=== PATIENT | female | born 1990 | race Caucasian/White ===

== ENCOUNTER 2019-06-05 18:35 | Emergency (ER) | payer OTHER ==
[2019-06-05 19:05] VITALS: BP 133/94; PULSE 86
--- NOTE | 2019-06-05 20:00 | EDM.PDOC ---
ED HPI GENERAL MEDICAL PROBLEM - General Chief Complaint: [employer] WORK[employer] Problem Stated Complaint: CRAMPS AND SPOTTING Time Seen by Provider: 06/05/19 19:39 Source of Information: Reports: Patient History Limitations: Reports: No Limitations - History of Present Illness INITIAL COMMENTS - FREE TEXT/NARRATIVE: Ms. Delarosa is a very pleasant 28-year-old woman with no significant past medical history, , who states that she and her are trying to get . She states that she has been on clomiphene in the past, but not for the last 2 menstrual cycles. Her LMP was 05/19/2019, lasting 4 days, however, she states that she has been spotting since, a brownish color, except for tonight, when it was pinkish. She reports one week of intermittent left lower quadrant cramping. She has had nausea, but no recent fever, vomiting, constipation, diarrhea, or urinary symptoms. She states that her breasts hurt. She denies feeling lightheaded when standing. No prior similar symptoms. The patient states that she has a history of kidney stones, and was wondering if her current symptoms could be due to a kidney stone, since she has had a little bit of left back pain, but states that it also has been coming and going. She acknowledges that her current symptoms are nothing like they were when she had a kidney stone. The patient's PCP is MOISES Blackburn Her [employer] is Dr. Rhea Drake. The patient has an appointment to see Dr. Drake on 06/09/2019. Lower Pelvic Pain Score (Numeric/FACES): 0 - Related Data Allergies Allergy/AdvReac Type Severity Reaction Status Date / Time No Known Allergies Allergy Verified 09/05/18 18:36 Home Meds: Home Meds Sertraline HCl [Zoloft] 100 mg PO DAILY 09/05/18 [History] Past Medical History Genitourinary History: Reports: Renal Calculus : 2 Para: 2 Psychiatric History: Reports: Anxiety, Depression - Past Surgical History HEENT Surgical History: Reports: Oral Surgery ([place]is[place] teeth extraction) Cardiovascular Surgical History: Reports: Other (See Below) (Left neck AVM embolization) Social & Family History - Tobacco Use Smoking Status *Q: Never Smoker - Alcohol Use Alcohol Use History: No - Recreational Drug Use Recreational Drug Use: No - Living Situation & Occupation Living situation: Reports: , with Spouse, with Family (2 kids) Occupation: Unemployed ED ROS GENERAL - Review of Systems Review Of Systems: ROS reveals no pertinent complaints other than HPI. ED EXAM, RENAL/ - Physical Exam Exam: See Below Exam Limited By: No Limitations General Appearance: Alert, WD/WN, No Apparent Distress Eye Exam: Bilateral Eye: EOMI, Normal Inspection Ears: Normal External Exam, Hearing Grossly Normal Nose: Normal Inspection Throat/Mouth: Normal Inspection, Normal Lips, Normal Voice, No Airway Compromise Head: Atraumatic, Normocephalic Neck: Normal Inspection, Full Range of Motion Respiratory/Chest: No Respiratory Distress, Lungs Clear, Normal Breath Sounds, No Accessory Muscle Use Cardiovascular: Normal Peripheral Pulses, Regular Rate, Rhythm, No Edema, No Gallop, No JVD, No Murmur, No Rub GI/Abdominal: Normal Bowel Sounds, Soft, No Organomegaly, No Distention, No Abnormal Bruit, No Mass, Tender (Left lower quadrant/pelvis only. Nontender elsewhere.) (Female) Exam: Deferred Rectal (Female) Exam: Deferred Back Exam: Normal Inspection, Full Range of Motion. No: CVA Tenderness (L), CVA Tenderness (R) Extremities: Normal Inspection, Normal Range of Motion, No Pedal Edema, Normal Capillary Refill Neurological: Alert, Oriented, Normal Cognition, No Motor/Sensory Deficits Psychiatric: Normal Affect Skin Exam: Warm, Dry, Intact, Normal Color, No Rash Course - Vital Signs Last Recorded V/S: Last Vital Signs Temp 37.9 C 06/05/19 19:03 Pulse 86 06/05/19 19:03 Resp 16 06/05/19 19:03 BP 133/94 H 06/05/19 19:03 Pulse Ox 100 06/05/19 19:03 - Orders/Labs/Meds Orders: Active Orders 24 hr Category Date Time Status OB Transvaginal [US] Stat Exams 06/05/19 20:42 Taken PATIENT RETYPE [BBK] Routine Lab 06/05/19 21:40 Ordered Labs: Laboratory Tests 06/05/19 06/05/19 06/05/19 Range/Units 19:25 21:00 21:00 WBC 8.73 (3.98-10.04) K/mm3 RBC 4.20 (3.98-5.22) M/mm3 Hgb 11.8 (11.2-15.7) gm/dl Hct 35.9 (34.1-44.9) % MCV 85.5 (79.4-94.8) fl MCH 28.1 (25.6-32.2) pg MCHC 32.9 (32.2-35.5) g/dl RDW Std Deviation 40.3 (36.4-46.3) fL Plt Count 214 (182-369) K/mm3 MPV 10.3 (9.4-12.3) fl Neut % (Auto) 59.0 (34.0-71.1) % Lymph % (Auto) 32.2 (19.3-51.7) % Nicholas % (Auto) 6.2 (4.7-12.5) % Eos % (Auto) 2.4 (0.7-5.8) Baso % (Auto) 0.1 (0.1-1.2) % Neut # (Auto) 5.15 (1.56-6.13) K/mm3 Lymph # (Auto) 2.81 (1.18-3.74) K/mm3 Nicholas # (Auto) 0.54 H (0.24-0.36) K/mm3 Eos # (Auto) 0.21 (0.04-0.36) K/mm3 Baso # (Auto) 0.01 (0.01-0.08) K/mm3 Sodium 141 (136-145) mEq/L Potassium 3.7 (3.5-5.1) mEq/L Chloride 107 (98-107) mEq/L Carbon Dioxide 25 (21-32) mEq/L Anion Gap 12.7 (5-15) BUN 12 (7-18) mg/dL Creatinine 0.8 (0.55-1.02) mg/dL Est Cr Clr Drug Dosing 98.88 mL/min Estimated GFR (MDRD) > 60 (>60) mL/min BUN/Creatinine Ratio 15.0 (14-18) Glucose 88 (74-106) mg/dL Calcium 9.3 (8.5-10.1) mg/dL Total Bilirubin 0.2 (0.2-1.0) mg/dL AST 12 L (15-37) U/L ALT 14 (14-59) U/L Alkaline Phosphatase 59 (46-116) U/L Total Protein 7.0 (6.4-8.2) g/dl Albumin 4.0 (3.4-5.0) g/dl Globulin 3.0 gm/dL Albumin/Globulin Ratio 1.3 (1-2) HCG, Quant 437.0 mIU/mL Urine HCG, Qual Positive (NEGATIVE) Blood Type 06/05/19 Range/Units 21:00 WBC (3.98-10.04) K/mm3 RBC (3.98-5.22) M/mm3 Hgb (11.2-15.7) gm/dl Hct (34.1-44.9) % MCV (79.4-94.8) fl MCH (25.6-32.2) pg MCHC (32.2-35.5) g/dl RDW Std Deviation (36.4-46.3) fL Plt Count (182-369) K/mm3 MPV (9.4-12.3) fl Neut % (Auto) (34.0-71.1) % Lymph % (Auto) (19.3-51.7) % Nicholas % (Auto) (4.7-12.5) % Eos % (Auto) (0.7-5.8) Baso % (Auto) (0.1-1.2) % Neut # (Auto) (1.56-6.13) K/mm3 Lymph # (Auto) (1.18-3.74) K/mm3 Nicholas # (Auto) (0.24-0.36) K/mm3 Eos # (Auto) (0.04-0.36) K/mm3 Baso # (Auto) (0.01-0.08) K/mm3 Sodium (136-145) mEq/L Potassium (3.5-5.1) mEq/L Chloride (98-107) mEq/L Carbon Dioxide (21-32) mEq/L Anion Gap (5-15) BUN (7-18) mg/dL Creatinine (0.55-1.02) mg/dL Est Cr Clr Drug Dosing mL/min Estimated GFR (MDRD) (>60) mL/min BUN/Creatinine Ratio (14-18) Glucose (74-106) mg/dL Calcium (8.5-10.1) mg/dL Total Bilirubin (0.2-1.0) mg/dL AST (15-37) U/L ALT (14-59) U/L Alkaline Phosphatase (46-116) U/L Total Protein (6.4-8.2) g/dl Albumin (3.4-5.0) g/dl Globulin gm/dL Albumin/Globulin Ratio (1-2) HCG, Quant mIU/mL Urine HCG, Qual (NEGATIVE) Blood Type O POSITIVE - Re-Assessments/Exams Free Text/Narrative Re-Assessment/Exam: 06/05/19 19:56 As per the HPI, the patient had a 4 day menstrual period starting 05/19/2019, but has been spotting ever since, and has had left pelvic cramping on and off for the past week. The patient denies having any urinary symptoms, and since she is spotting, collecting a urine sample to check for a UTI would require a quick catheter, which the patient does not want. Similarly, likely out of modesty, the patient does not want a pelvic exam, preferring to wait until her previously scheduled appointment with Dr. Drake this coming Friday. I have ordered a urine test. If it is positive, we will need to get a pelvic ultrasound to rule out an ectopic , but if it is negative, no further testing is necessary tonight, as a left ovarian cyst would be the most likely diagnosis. A kidney stone is highly unlikely, as she has no CVA tenderness whatsoever. If her test is negative, the patient can follow-up with Dr. Drake on Friday. 06/05/19 20:46 The patient's urine test has returned positive. I have therefore ordered a transvaginal ultrasound to evaluate for an ectopic , along with a CBC, CMP quantitative hCG, and an ABO/Rh. 06/05/19 22:47 Transvaginal ultrasound is read by [facility] as: Moderate amount of free fluid in the pelvis has internal echoes suggesting that there is some associated debris or possibly blood products. Correlate with serum beta-hCG level. Likely serial serum beta-hCG levels will need to be obtained and follow-up imaging based on clinical and beta-hCG results. 06/05/19 22:[address] Martinez at 22:50. He is in the hospital at this time, and will come by the ED to take a look at the patient. 06/05/19 23:16 Dr. Martinez has evaluated the patient. He would like to take the patient to the operating room for exploratory laparoscopy, however, the patient declined. The patient agrees to follow-up with Dr. Drake on 06/07/2019, and Dr. Martinez will contact Dr. Drake to see to it that the patient is put on the schedule. Alternatively, the patient can see Dr. Martinez in his office on Friday if Dr. Drake is unable to see the patient. He is recommending that the patient have a repeat ultrasound and beta-hCG on Friday, and serially, until either an intrauterine or ectopic is determined. The patient agreed to return to the ED if she develops any significant pelvic pain. Departure - Departure Time of Disposition: 23:20 Disposition: Home, Self-Care 01 Condition: Good Clinical Impression: Hemorrhage in early - Discharge Information *PRESCRIPTION DRUG MONITORING PROGRAM REVIEWED*: Not Applicable *COPY OF PRESCRIPTION DRUG MONITORING REPORT IN PATIENT SUZANNE: Not Applicable Referrals: Ilda Horan PA-C [Primary Care Provider] - Rhea Drake MD [Physician] - Forms: ED Department Discharge Additional Instructions: You were seen in the emergency room for spotting since her last menstrual period , left pelvic pain, and nausea. Workup in the ER included a urine test, which returned positive. Subsequent workup included blood work and a transvaginal ultrasound. Your quantitative hCG is very low, at 473, consistent with either very early , or an ectopic . Your blood type is O-POS. The transvaginal ultrasound found some fluid in your pelvis that may be blood, but did not see either an intrauterine or an ectopic . This means that an ectopic has not been ruled out (is still possible). You were evaluated in the emergency room by Dr. Martinez, who recommended that you go to the operating room for exploratory laparoscopy, which you declined. You are to follow-up with your [employer], Dr. Rhea Drake, this coming Friday, , for a repeat pelvic ultrasound and quantitative hCG. Dr. Martinez will contact Dr. Drake to see that you get on the schedule, however, if you are unable to get into see Dr. Drake, you need to follow-up with Dr. Martinez on Friday. You are to return to the ER if you have any significant pelvic pain, or for any other problems. - My Orders Last 24 Hours: My Active Orders 06/05/19 20:42 OB Transvaginal [US] Stat 06/05/19 21:40 PATIENT RETYPE [BBK] Routine - Assessment/Plan Last 24 Hours: My Active Orders 06/05/19 20:42 OB Transvaginal [US] Stat 06/05/19 21:40 PATIENT RETYPE [BBK] Routine
--- NOTE | 2019-06-05 23:50 | PCM.SN ---
- Free Text/Narrative Note: [employer]PER[employer] consultation note: History of present illness: Headers a 28-year-old 3 now para 2002 white female who is seen in the emergency room for 2 concerns one is a pinkish vaginal discharge and the other is pelvic discomfort which she reports as crampy in nature. Reports the discomfort started approximately 1 week ago when she and her were having intercourse with deep penile penetration. She says been present since that periods very mild and she is not taking anything for the pain. She started having some spotting today which was worrisome. Has had some brown discharge prior to this. She questions whether she has some breast tenderness and a small amount of nausea. She feels she had the same type symptoms when she was with her other 2 children. At his last menstrual period started on 05/19/2019. She's had periods on a regular basis over the last 6 months. She actually was on Clomid 2 months ago to induce ovulation as she is attempting to get . She was not on Clomid at that time of her last ovulation. She has done some ovulation testing previously but not with the last cycle. She is at 2 previous pregnancies, had no problems getting and delivered vaginally after normal course. On evaluation emergency room patient is noted to have a serum quantitative beta hCG of 437 mU/mL. She is seen by Dr. Stern and found to have some mild left lower quadrant discomfort. No pain otherwise noted in the pelvis. Her ultrasound done in the ED shows moderate amount of free fluid in the pelvis that has internal echoes suggestive of some type of associated debris or possibly blood products. Recommendations to correlate with serum beta-hCG level. Likely serum beta hCG levels will need to be obtained and follow Imaging based on clinical and beta-hCG results. Allergies: None Medications: 1. Sertraline 2. Supplements. Past medical history: 1. Depression/anxiety 2. Vaginally 2 3. History of kidney stones Past surgical history: 1. [place] teeth extraction Family history: Is negative for bleeding disorders, blood clotting disorders, anesthesia or problems. Social history: Patient is , is a [id number] mom. She does not use any significant loss of alcohol, drugs or tobacco. She lives in [place], [place]. works in the oil field. Review of systems: In general patient has no complaints. Skin: Negative Lungs: No infectious symptoms or shortness of breath Cardiovascular: No chest pain or exercise intolerance Breasts: Some tenderness noted. No changes in size. GI: Negative : As per history of present illness. Musculoskeletal: Negative Neurological: Negative In general the patient is well-developed, well-nourished, pleasant female of stated age in no acute distress.She is not reporting any pain prior to my evaluation. Skin is warm dry without lesions. HEENT, neck and back within normal limits. Lungs are clear with good breath sounds in all lung riley. Cardiovascular exam shows regular and rhythm without murmurs. Abdomen is flat, soft, nontender without masses or organomegaly. Positive bowel sounds are noted. No inguinal lymphadenopathy or hernias are noted.No significant discomfort is noted. No rebound tenderness or guarding noted. organomegaly apparent. Genital exam is not performed. Extremities and neurological exam are grossly within normal limits. Hepatitis and shows white count 8.73. Hemoglobin and hematocrit 11.8 and 35.9 respectively. Platelets are 214,000. Blood is O+. Comprehensive metabolic profile is normal. Assessment: 1. Positive test, fluid in the pelvic cavity but without any significant abdominal or pelvic symptoms. Cannot rule out ectopic . Patient is understanding that the only way to fully evaluate this is with laparoscopy possible laparotomy, possible salpingectomy which is recommended.. Patient wishes for conservative management as she is not having any significant pain. She has no significant risk factors for ectopic such as previous pelvic infection, etc. Differential diagnosis may also include ruptured hemorrhagic corpus luteum cyst. Patient appears to understand the potential significance of an ectopic diagnosis. 2. Blood is O+. No need for RhoGAM at this time. 3. Generally healthy female desiring at this time 4. Patient wishes to follow up with her primary care [employer] physician Dr. Drake. Plan: 1. I have thoroughly discussed the potential for ectopic with patient. She is understanding of the potential severity of a ruptured ectopic including possible severe injury or . She is aware that if conservative management was chosen she needs to be with someone for the next 48 hours that can bring her for immediate medical care if symptoms worsen. She is also made aware that if any need for pain medication, even Tylenol, she needs to come to the hospital for immediate care. Other symptoms of ectopic such as shoulder pain , abdominal distention, etc. are discussed in detail with patient. I've attempted to increase her level sensitivity to these symptoms. Essentially ectopic precautions have been given to her. 2. Increases or signs of ectopic occur would recommend immediate return to the hospital which time laparoscopy, possible laparotomy, possible salpingectomy would be performed. 3. Patient has decided on conservative management with follow-up in [address] Drake. I recommend that if conservative route is chosen, she undergo a serial quantitative beta-hCG at that time along with another transvaginal ultrasound. She is aware that this may result in laparoscopic evaluation. She is advised that if Dr. Drake is not available for evaluation in 2 days that she may make an appointment to see me after which she could return to Dr. Drake. 4. Sanam is advised to avoid any heavy lifting or significant activity until seen back in clinic. Also is to be at pelvic rest and taking it easy for the rest of the next 48 hours. She is given numbers to call if any further intervention is warranted.
--- NOTE | 2019-06-06 13:45 | US ---
First trimester obstetrical ultrasound: Multiple real-time images were obtained transvaginally. No intrauterine gestational sac is seen. There is fluid within the left adnexa showing low level echoes suspicious for blood products. Left ovary shows a complicated cyst measuring 2.5 cm most likely representing collapsing hemorrhagic cyst. Right ovary not very well seen and difficult to exclude right sided ectopic . Impression: 1. Blood products felt to be present within the left adnexa. 2. Poorly seen right ovary and difficult to completely exclude a right sided ectopic . Please correlate with patient's test. Diagnostic code #5 I agree with preliminary report from [facility], finalized on 06/05/19, 11:31 PM Central Time
== END 2019-06-05 23:35 | disposition home or self-care (01) ==
LOC: JD.ED 18:35
DX: O20.9 Hemorrhage in early pregnancy, unspecified (principal); O99.341 Other mental disorders complicating pregnancy, first trimester; F41.9 Anxiety disorder, unspecified; F32.9 Major depressive disorder, single episode, unspecified; Z79.899 Other long term (current) drug therapy; Z3A.01 Less than 8 weeks gestation of pregnancy
CPT/HCPCS: 36415; 76817; 76817-26; 80053; 81025; 84702; 85025; 86900; 86901; 99284-25

== ENCOUNTER 2020-02-04 20:39 | Emergency (ER) | payer MEDICAID, OTHER ==
[2020-02-04 20:54] VITALS: BP 151/109; PULSE 95
[2020-02-04] MEDS ORDERED: Ketorolac 60 MG/2 ML SDV IM ONE (21:07)
--- NOTE | 2020-02-04 21:10 | EDM.PDOC ---
ED HPI GENERAL MEDICAL PROBLEM - General Chief Complaint: Bite:Animal, Insect Stated Complaint: LUMP ON CALF OF RIGHT LEG Time Seen by Provider: 02/04/20 20:49 Source of Information: Reports: Patient, RN Notes Reviewed History Limitations: Reports: No Limitations - History of Present Illness INITIAL COMMENTS - FREE TEXT/NARRATIVE: Patient is a 29-year-old female who presents to the ED for the evaluation of a lump on the calf of her right leg. The patient states that she is not sure if this is a bug bite, or an ingrown hair, she states that she shaved last week, and had a red lump afterwards, and she thought she may have pulled a hair out of the area in question. She also notes that today while outside cutting grass and painting she noticed the area got itchy and more red. Pain has been worsening over the last couple days as well. She is not noted to have any fevers or chills at home, she denies any other sick-like symptoms, fever/chills , cough/shortness of breath. Patient did not take any sort of pain medication for this. Right Leg Pain Score (Numeric/FACES): 3 - Related Data Allergies Allergy/AdvReac Type Severity Reaction Status Date / Time No Known Allergies Allergy Verified 02/04/20 20:54 Home Meds: Home Meds Sertraline HCl [Zoloft] 100 mg PO DAILY 09/05/18 [History] Doxycycline [Vibramycin] 100 mg PO BID #20 tab 02/04/20 [Rx] Past Medical History Genitourinary History: Reports: Renal Calculus Psychiatric History: Reports: Anxiety, Depression - Past Surgical History HEENT Surgical History: Reports: Oral Surgery Cardiovascular Surgical History: Reports: Other (See Below) Social & Family History - Tobacco Use Smoking Status *Q: Never Smoker Second Hand Smoke Exposure: No - Caffeine Use Caffeine Use: Reports: None - Recreational Drug Use Recreational Drug Use: No - Living Situation & Occupation Living situation: Reports: , with Spouse, with Family (2 kids) Occupation: Unemployed ED ROS GENERAL - Review of Systems Review Of Systems: Comprehensive ROS is negative, except as noted in HPI. ED EXAM, ANIMAL BITE - Physical Exam Exam: See Below Exam Limited By: No Limitations General Appearance: Alert, WD/WN, No Apparent Distress Eye Exam: Bilateral Eye: EOMI, Normal Inspection, PERRL Ears: Normal External Exam Nose: Normal Inspection Throat/Mouth: Normal Inspection Head: Atraumatic, Normocephalic Neck: Normal Inspection Respiratory/Chest: No Respiratory Distress, Lungs Clear, Normal Breath Sounds, No Accessory Muscle Use, Chest Non-Tender Cardiovascular: Normal Peripheral Pulses, Regular Rate, Rhythm, No Murmur Peripheral Pulses: 3+: Dorsalis Pedis (L), Dorsalis Pedis (R) Extremities: Normal Range of Motion, Normal Capillary Refill, Redness (to right lower leg, on the medial aspect, about mid calf. There is a scab in the center of the lesion and the lesion itself is erythematous, round and warm to the touch. This is roughly 10cm in diameter.) Neurological: Alert, Oriented, Normal Cognition, Normal Reflexes, No Motor/ Sensory Deficits Psychiatric: Normal Affect, Normal Mood Skin Exam: Warm/Dry, Other (See extremities documentation for further detail) Course - Vital Signs Last Recorded V/S: Last Vital Signs Temp 99.2 F 02/04/20 20:52 Pulse 95 02/04/20 20:52 Resp 14 02/04/20 20:52 BP 151/109 H 02/04/20 20:52 Pulse Ox 99 02/04/20 20:52 - Orders/Labs/Meds Meds: Medications Discontinued Medications Generic Name Dose Route Start Last Admin Trade Name Chari PRN Reason Stop Dose Admin Ketorolac Tromethamine 60 mg 02/04/20 21:07 Toradol IM 02/04/20 21:08 ONETIME ONE - Re-Assessments/Exams Free Text/Narrative Re-Assessment/Exam: 02/04/20 21:15 Patient presents to the ED for the evaluation of a lump on her right leg, she is unsure as if this is a bug bite or an ingrown hair in nature, is also hard to tell on examination. Nonetheless patient does have a surrounding cellulitis and will be treated with antibiotics for this. Have given other general recommendations and will have her follow-up if needed if the antibiotics are not taking care of the infection. Patient verbalized understanding at this time. Departure - Departure Time of Disposition: 21:07 Disposition: Home, Self-Care 01 Condition: Good Clinical Impression: Cellulitis of left leg - Discharge Information *PRESCRIPTION DRUG MONITORING PROGRAM REVIEWED*: No *COPY OF PRESCRIPTION DRUG MONITORING REPORT IN PATIENT SUZANNE: No Prescriptions: Doxycycline [Vibramycin] 100 mg PO BID #20 tab Instructions: Cellulitis, Adult, [id number] Referrals: Ilda Horan PA-C [Primary Care Provider] - Forms: ED Department Discharge Additional Instructions: You were evaluated in the ER today regarding the redness and swelling on your right leg. There was an area of redness surrounding a suspected bug bite versus ingrown hair. This redness is cellulitis, common skin infection. You will be started on antibiotic for this. Please take as prescribed until the cold course is done. Antibiotics can take up to 48 hours to start working, if you do not notice an improvement in your symptoms by Friday night or early Friday morning, highly recommend you seek care for reevaluation. The cellulitis area was marked with a skin marker, this will not be easily washable. If the redness should spread to finger widths past these borders, you should seek care for reevaluation. You may use ibuprofen, 600 mg every 6 hours as needed for further pain relief, do not exceed 3200 mg in a 24-hour time span. Recommend you use hot packs to the area, if there is any suspected infection, this should bring it to the surface, to help clear the infection faster. Please return to the ER at any time if symptoms change or worsen. Sepsis Event Note - Evaluation Sepsis Screening Result: No Definite Risk - Focused Exam Vital Signs: Vital Signs Temp Pulse Resp BP Pulse Ox 02/04/20 20:52 99.2 F 95 14 151/109 H 99 Date Exam was Performed: 02/04/20 Time Exam was Performed: 21:11
== END 2020-02-04 21:29 | disposition home or self-care (01) ==
LOC: JD.ED 20:39
DX: L03.115 Cellulitis of right lower limb (principal); F41.9 Anxiety disorder, unspecified; F32.9 Major depressive disorder, single episode, unspecified; Z79.899 Other long term (current) drug therapy
CPT/HCPCS: 96372; 99283; J1885